=== PATIENT | male | born 2005 | race Caucasian/White ===

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

== ENCOUNTER → 2024-01-17 | Outpatient (CLI) | payer OTHER ==
[2024-01-17 11:27] LABS: URINE WBC 0 /hpf (0-3)
[2024-01-17 11:44] LABS: BASO # 0.02 K/mm3 (0.02-0.10); EOS # 0.21 K/mm3 (0.04-0.40); EOS % 3.2 % (0.0-4.0); HEMATOCRIT 42.5 % (36.0-47.0); HEMOGLOBIN 14.2 g/dL (12.5-16.1); MEAN CELL VOLUME 81 fl (78-95); MEAN CORPUSCULAR HEMOGLOBIN 27 pg (26-32); MEAN CORPUSCULAR HGB CONC 33 g/dL (33-37); MEAN PLATELET VOLUME 8.9 fl (7.4-10.4); MONO # 0.52 K/mm3 (0.20-0.80); NEU # 4.07 K/mm3 (1.40-6.50); PLATELET COUNT 223 K/mm3 (130-400); RED BLOOD COUNT 5.23 M/mm3 (4.20-5.60); RED CELL DISTRIBUTION WIDTH 12.3 % (11.5-14.5); WHITE BLOOD COUNT 6.5 K/mm3 (4.8-10.8)
[2024-01-17 11:52] LABS: ALBUMIN 4.6 g/dL (3.5-5.0)
[2024-01-17 11:53] LABS: CALCIUM 9.6 mg/dL (8.3-10.5)
[2024-01-17 11:55] LABS: TOTAL PROTEIN 7.6 g/dL (6.4-8.3)
[2024-01-17 11:56] LABS: TOTAL BILIRUBIN 0.7 mg/dL (0.2-1.2)
[2024-01-17 11:57] LABS: PH-URINE 7.5 (5.0 - 8.0); URINE APPEARANCE SLIGHTLY CLOUDY (CLEAR); URINE BILIRUBIN NEGATIVE (NEGATIVE); URINE BLOOD NEGATIVE (NEGATIVE); URINE COLOR YELLOW (YELLOW); URINE GLUCOSE NEGATIVE (NEGATIVE); URINE KETONE NEGATIVE (NEGATIVE); URINE LEUKOCYTE ESTERASE NEGATIVE (NEGATIVE); URINE NITRATE NEGATIVE (NEGATIVE); URINE PROTEIN(semi-quant) NEGATIVE (NEGATIVE)
== END ==
LOC: LAB 11:18
PROVIDERS: Nurse Practitioner Family
DX: R00.8 Other abnormalities of heart beat (principal); R05.3 Chronic cough; R10.9 Unspecified abdominal pain

== ENCOUNTER → 2024-08-12 | Outpatient (CLI) | payer OTHER ==
[2024-08-12 08:00] LABS: BASO # 0.02 K/mm3 (0.02-0.10); EOS # 0.17 K/mm3 (0.04-0.40); EOS % 3.1 % (0.0-4.0); HEMATOCRIT 42.9 % (36.0-47.0); HEMOGLOBIN 14.2 g/dL (12.5-16.1); LYMPH# 1.76 K/mm3 (1.50-4.00); MEAN CELL VOLUME 82 fl (78-95); MEAN CORPUSCULAR HEMOGLOBIN 27 pg (26-32); MEAN CORPUSCULAR HGB CONC 33 g/dL (33-37); MEAN PLATELET VOLUME 8.9 fl (7.4-10.4); MONO # 0.44 K/mm3 (0.20-0.80); NEU # 3.13 K/mm3 (1.40-6.50); PLATELET COUNT 230 K/mm3 (130-400); RED BLOOD COUNT 5.25 M/mm3 (4.20-5.60); RED CELL DISTRIBUTION WIDTH 12.4 % (11.5-14.5); WHITE BLOOD COUNT 5.5 K/mm3 (4.8-10.8)
[2024-08-12 08:08] LABS: ALBUMIN 4.5 g/dL (3.5-5.0)
[2024-08-12 08:09] LABS: CALCIUM 9.3 mg/dL (8.3-10.5)
[2024-08-12 08:10] LABS: TOTAL PROTEIN 7.8 g/dL (6.4-8.3)
[2024-08-12 08:12] LABS: TOTAL BILIRUBIN 0.3 mg/dL (0.2-1.2)
[2024-08-12 08:16] LABS: DIRECT BILIRUBIN 0.1 mg/dL (0.0-0.5)
== END ==
LOC: LAB 07:50
PROVIDERS: Registered Nurse
DX: R10.9 Unspecified abdominal pain (principal)